=== PATIENT | female | born 1985 | race Caucasian/White ===

== ENCOUNTER 2016-07-29 16:38 | Emergency (ER) | payer OTHER ==
[2016-07-29] MEDS ORDERED: IBUPROFEN 600 MG TABLET PO STA (17:38)
[2016-07-29] MEDS ORDERED: LIDOCAINE 2% 10 ML MDV SUBQ STA (17:38)
[2016-07-29] MEDS ORDERED: BUPIVACAINE 0.5% PF 30 ML VIAL SUBQ STA (17:38)
[2016-07-29] MEDS ORDERED: IBUPROFEN 600 MG TABLET PO ONE (17:41)
[2016-07-29] MEDS ORDERED: BUPIVACAINE 0.5% PF 30 ML VIAL ONE (17:42)
[2016-07-29] MEDS ORDERED: LIDOCAINE 1% 2 ML VIAL ONE (17:43)
== END 2016-07-29 19:27 | disposition home or self-care (01) ==
DX: S67.197A Crushing injury of left little finger, initial encounter (principal); S62.667B Nondisplaced fracture of distal phalanx of left little finger, initial encounter for open fracture; W23.1XXA Caught, crushed, jammed, or pinched between stationary objects, initial encounter; Y92.89 Other specified places as the place of occurrence of the external cause; Y99.0 Civilian activity done for income or pay
CPT/HCPCS: 11760; 12001; 73140; 99283; A9270

== ENCOUNTER 2016-09-11 13:07 | Outpatient (CLI) | payer OTHER ==
[2016-09-11 20:54] LABS: THYROID STIMULATING HORMONE 2.07 uIU/mL (0.34-5.60)
[2016-09-11 21:02] LABS: FOLLICLE STIMULATING HORMONE 2.51 mIU/mL
[2016-09-11 21:03] LABS: LUTEINIZING HORMONE 2.08 mIU/mL
== END 2016-09-11 13:08 | disposition home or self-care (01) ==
LOC: LAB.N 13:07
PROVIDERS: ATTEND Obstetrics & Gynecology
DX: N97.9 Female infertility, unspecified (principal)
CPT/HCPCS: 36415; 83001; 83002; 84144; 84443

== ENCOUNTER 2016-09-30 13:07 | Outpatient (CLI) | payer OTHER ==
[2016-09-30] MEDS ORDERED: IOTHALAMATE MEGLUMINE 50 ML VIAL IVP ONE ×2 (14:58)
--- NOTE | 2016-09-30 20:43 | XRAY Report ---
HYSTEROSALPINGOGRAM: 09/30/2016 CLINICAL INDICATION: Infertility. Procedure was performed in conjunction with Dr. Snyder. Initial register clerk image demonstrates the catheter in the uterus. Following contrast injection, there is opacification of the endometrial canal and both fallopian tubes, with free spill from both fallopian tubes into the pelvis. No loculation is identified. The patient tolerated the procedure well. No immediate complications. IMPRESSION: PATENT BILATERAL FALLOPIAN TUBES, WITHOUT EVIDENCE OF PELVIC LOCULATION. FLUOROSCOPY TIME: 1 minute; six spot images obtained. JOB #: [id number] EXT JOB #: [id number] MTDD
== END 2016-09-30 13:08 | disposition home or self-care (01) ==
LOC: DI 13:07
PROVIDERS: ATTEND Obstetrics & Gynecology
DX: N97.9 Female infertility, unspecified (principal)
CPT/HCPCS: 58340; 74740; Q9961

== ENCOUNTER 2017-05-21 11:41 | Outpatient (CLI) | payer OTHER ==
--- NOTE | 2017-05-21 18:20 | XRAY Report ---
COMPLETE LUMBAR SPINE: 05/21/2017 CLINICAL INDICATION: Chronic low back pain. COMPARISON: 09/26/2015 FINDINGS: AP, lateral, oblique, coned down views of the lumbar spine demonstrate mild degenerative changes at L5-S1, with disc space narrowing and small anterior osteophytes. There is no evidence of fracture or subluxation. No pars defect is seen. The bowel gas pattern is normal. IMPRESSION: MILD DEGENERATIVE CHANGES AT L5-S1, NEW FROM PREVIOUS. TD: 05/21/2017 18:19
== END 2017-05-21 11:42 | disposition home or self-care (01) ==
LOC: DI 11:41
PROVIDERS: ATTEND Nurse Practitioner Family
DX: M47.897 Other spondylosis, lumbosacral region (principal)
CPT/HCPCS: 72110

== ENCOUNTER 2017-05-26 16:51 | Outpatient (CLI) | payer OTHER ==
--- NOTE | 2017-05-27 09:41 | Ultrasound Report ---
THYROID ULTRASOUND: 05/26/2017 CLINICAL INDICATION: History of thyroid cyst. FINDINGS: The right lobe measures 5.5 x 1.3 x 1.0 cm, and the left lobe measures 5.1 x 1.5 x 0.8 cm. The isthmus measures 2 mm. Both lobes demonstrate homogeneous echotexture. No solid or cystic lesion is appreciated. No adenopathy is seen. IMPRESSION: NORMAL THYROID ULTRASOUND. TD: 05/27/2017 09:40
== END 2017-05-26 16:52 | disposition home or self-care (01) ==
LOC: DI 16:51
PROVIDERS: ATTEND Nurse Practitioner Family
DX: E04.1 Nontoxic single thyroid nodule (principal)
CPT/HCPCS: 76536

== ENCOUNTER 2018-08-16 09:04 | Outpatient (CLI) | payer OTHER | END 2018-08-16 09:05 | disposition home or self-care (01) | LOC: LAB 09:04 | PROVIDERS: ATTEND Obstetrics & Gynecology Reproductive Endocrinology | DX: Z32.00 Encounter for pregnancy test, result unknown (principal) | CPT/HCPCS: 36415; 84702 ==

== ENCOUNTER 2018-08-18 15:52 | Outpatient (CLI) | payer OTHER | END 2018-08-18 15:53 | disposition home or self-care (01) | LOC: LAB 15:52 | PROVIDERS: ATTEND Obstetrics & Gynecology Reproductive Endocrinology | DX: Z32.01 Encounter for pregnancy test, result positive (principal) | CPT/HCPCS: 36415; 84702 ==